=== PATIENT | female | born 1955 | race Hispanic/Latino ===

== ENCOUNTER → 2023-12-05 | Outpatient (CLI) | payer BC, OTHER | END | disposition home or self-care (01) | LOC: SHCH 09:36 | PROVIDERS: ATTEND Internal Medicine Cardiovascular Disease | DX: I11.9 Hypertensive heart disease without heart failure (principal); I20.9 Angina pectoris, unspecified; R06.09 Other forms of dyspnea; R07.9 Chest pain, unspecified; E11.9 Type 2 diabetes mellitus without complications; E78.5 Hyperlipidemia, unspecified | CPT/HCPCS: 93306 ==

== ENCOUNTER → 2023-12-11 | Outpatient (CLI) | payer OTHER ==
[~2023-12-11] MED LIST: REGADENOSON 0.4 MG/5 ML PF SYG IVP ONE
== END | disposition home or self-care (01) ==
LOC: SHCH 08:39
PROVIDERS: ATTEND Internal Medicine Cardiovascular Disease
DX: I20.9 Angina pectoris, unspecified (principal); R07.9 Chest pain, unspecified; R06.9 Unspecified abnormalities of breathing
CPT/HCPCS: 78452; 96374; 93017; J2785; A9500 ×2